=== PATIENT | female | born 1975 | race American Indian/Alaskan Native ===

== ENCOUNTER 2019-02-23 16:04 | Outpatient (CLI) | payer OTHER ==
--- NOTE | 2019-02-24 15:13 | Mammography Report ---
DIGITAL SCREENING MAMMOGRAM WITH CAD, 02/23/2019 INDICATION: Routine screening mammography. TECHNIQUE: Digital bilateral 2D mammography was obtained in the craniocaudal and mediolateral obliq ue projections. This examination was interpreted with the benefit of Computer-Aided Detection analysi s. COMPARISON: None available. However, she indicated that she had a previous mammogram at [facility]. FINDINGS: Breast Density: The breasts are almost entirely fatty. A right lower inner circumscribed asymmetry requires comparison with the prior mammogram or additiona l imaging. No architectural distortion or suspicious calcifications of the right breast. There is no evidence of dominant mass, suspicious calcifications or architectural distortion in the left breast. IMPRESSION: Comparison with the previous mammogram is recommended. We will attempt to obtain a prior mammogram fo r comparison. If we do not obtain a prior mammogram within 30 days, a revised report will be issued r ecommending a recall for additional imaging. Please be advised that the patient should not schedule a n appointment for return until adequate time (at least 2 weeks) has passed for us to obtain the prior mammogram. Follow up recommendation: Obtain prior study for comparison Category 0: Incomplete. Needs additional imaging evaluation and/or prior mammograms for comparison. A "normal" or negative report should not discourage follow up or biopsy of a clinically significant f inding. A written summary of these findings will be mailed to the patient. The patient will be entered into a mammography reporting system which will generate a reminder letter for the patient's next appointmen t at the appropriate interval. The [employer] recommends yearly mammograms starting at age 40 and continuing as l justin as a woman is in good health. Breast MRI is recommended for women with an approximate 20-25% or greater lifetime risk of breast cancer, including women with a strong family history of breast or ova ally cancer or who have been treated for Hodgkin's disease. Signer Name: Nehemias Lopez MD Signed: 02/24/2019 3:09 PM Workstation Name: [id number]
== END 2019-02-23 16:05 | disposition home or self-care (01) ==
LOC: SPVWC 16:04
PROVIDERS: ATTEND Family Medicine
DX: Z12.31 Encounter for screening mammogram for malignant neoplasm of breast (principal)
CPT/HCPCS: 77067